=== PATIENT | female | born 1940 ===

== ENCOUNTER 2020-03-02 14:22 | Inpatient (IN) ==
[2020-03-02] MEDS ORDERED: Ondansetron 4 mg VIAL 2 MG/ML 2 ml VIAL IV PRN (19:56)
[2020-03-02] MEDS ORDERED: Al Hydrox/Mg Hydrox/Simet LIQ 30 ML UDC PO PRN (19:56)
[2020-03-02] MEDS ORDERED: Oxymetazoline 0.05% NASAL SPR 15 ML BTL BOTH NARES ONE (19:59)
[2020-03-02] MEDS ORDERED: Dextrose 50% Syringe 50 ml 25 GM/50 ML SYRINGE IV PUSH PRN (20:03)
[2020-03-02 20:46] LABS: Troponin I 0.08 ng/mL (<0.03)
[2020-03-02 21:40] LABS: Hematocrit 38 % (35-47); Hemoglobin 12.6 g/dL (12.0-16.0); Mean Corpuscular HGB Conc 33 g/dL (31-36); Mean Corpuscular Hemoglobin 30 pg (27-31); Mean Corpuscular Volume 91 fL (80-97); Mean Platelet Volume 8.9 fL (7.4-10.4); Platelet Count 215 10^3/uL (150-450); Red Blood Count 4.23 10^6 /uL (3.70-4.87); Red Cell Distribution Width 14 % (10-15); White Blood Count 7.6 10^3/uL (3.5-10.8)
[2020-03-02 21:47] LABS: ABS Basophils 0.1 10^3/ul (0-0.2); ABS Eosinophils 0.2 10^3/ul (0-0.6); ABS Lymphocytes 1.7 10^3/ul (1.0-4.8); ABS Monocytes 1.1 10^3/ul (0-0.8); ABS Neutrophils 4.6 10^3/ul (1.5-7.7); Eosinophil % 2.3 %; Lymphocyte % 22.9 %; Nucleated Red Blood Cells % 0.1
[2020-03-02] MEDS: DULoxetine DR 20 mg CAP PO SCH (21:56)
[2020-03-02] MEDS: Heparin DRIP 25,000 UNITS BAG 25,000 UNITS/500 ML BAG IV SCH (21:58)
[2020-03-02 22:00] LABS: EGFR African American 80.7 (>60); EGFR Non-African American 66.7 (>60)
[2020-03-02] MEDS: Latanoprost 0.005% 2.5 ml BTL BOTH EYES SCH (22:08)
[2020-03-02] MEDS: HYDROcodone/ACETAMIN 5/325 mg TAB PO PRN (22:53)
[2020-03-02] MEDS ORDERED: Albuterol HFA INHALER 8 gm MDI INH PRN (23:07)
[2020-03-02] MEDS: Furosemide 40 mg/4 ml IV VIAL IV SCH (23:14)
[2020-03-02 23:49] LABS: Troponin I 0.08 ng/mL (<0.03)
[2020-03-03] MEDS: Mometasone/Formoter 200/5 MDI INH SCH ×4 (01:01→19:23)
[2020-03-03 03:42] LABS: ABS Lymphocytes 0.6 10^3/ul (1.0-4.8); ABS Monocytes 0.2 10^3/ul (0-0.8); ABS Neutrophils 6.1 10^3/ul (1.5-7.7); Eosinophil % 0.2 %; Hematocrit 38 % (35-47); Hemoglobin 12.7 g/dL (12.0-16.0); Lymphocyte % 8.9 %; Mean Corpuscular HGB Conc 33 g/dL (31-36); Mean Corpuscular Hemoglobin 31 pg (27-31); Mean Corpuscular Volume 92 fL (80-97); Mean Platelet Volume 9.1 fL (7.4-10.4); Platelet Count 211 10^3/uL (150-450); Red Blood Count 4.14 10^6 /uL (3.70-4.87); Red Cell Distribution Width 15 % (10-15); White Blood Count 6.9 10^3/uL (3.5-10.8)
[2020-03-03] MEDS: Heparin 5000 UNITS/ML 1 mL VIAL IV SCH (03:58)
[2020-03-03 04:15] LABS: TSH Ultra Thyroid Stim Horm 1.69 mcIU/mL (0.34-5.60)
[2020-03-03 04:18] LABS: Albumin 3.6 g/dL (3.2-5.2); Albumin/Globulin Ratio 1.3 (1-3); BUN/Creatinine Ratio 30.7 (8-20); EGFR African American 75.4 (>60); EGFR Non-African American 62.3 (>60); Globulin 2.8 g/dL (2-4); Potassium 3.5 mmol/L (3.5-5.0); Total Bilirubin 1.3 mg/dL (0.2-1.0); Total Protein 6.4 g/dL (6.4-8.9)
[2020-03-03] MEDS ORDERED: Potassium Chlor 20 meq TAB.ER PO ONE ×2 (04:31→22:53)
[2020-03-03] MEDS ORDERED: Iodixanol (CONTRAST) 320 MG/ML 100 ML SDV IV ONE ×3 (08:44→12:22)
[2020-03-03] MEDS ORDERED: diPHENhydraMINE IV 50 MG/ML 1 ml VIAL (BENADRYL) IV ONE (10:00)
[2020-03-03] MEDS: HYDROcodone/ACETAMIN 5/325 mg TAB PO PRN ×2 (10:18→20:29)
[2020-03-03] MEDS: DULoxetine DR 20 mg CAP PO SCH (10:18)
[2020-03-03] MEDS: Furosemide 40 mg/4 ml IV VIAL IV SCH (10:19)
[2020-03-03 11:33] LABS: INR 1.38 (0.82-1.09)
[2020-03-03 11:48] LABS: Activated Partial Thrombo Time 190.5 seconds (26.0-38.0)
[2020-03-03] MEDS ORDERED: Iodixanol (CONTRAST) 320 MG/ML 100 ML SDV IV SCH (13:00)
[2020-03-03] MEDS ORDERED: Magnesium Sulfate IV 3 GM in NS 0.9% 100 ml BAG 100 ML IVPB ONE (15:25)
[2020-03-03] MEDS ORDERED: Albuterol HFA INHALER 8 gm MDI INH PRN (15:28)
[2020-03-03] MEDS ORDERED: Fluticasone/Vilanterol MDI(NF) 100/25 MDI INH SCH (16:00)
[2020-03-03 18:38] LABS: BUN/Creatinine Ratio 26.1 (8-20); Calcium 8.2 mg/dL (8.6-10.3); EGFR African American 55.4 (>60); EGFR Non-African American 45.8 (>60); Potassium 3.3 mmol/L (3.5-5.0)
[2020-03-03 19:05] LABS: Magnesium 19.6 mg/dL (1.9-2.7)
[2020-03-03] MEDS: Latanoprost 0.005% 2.5 ml BTL BOTH EYES SCH (20:16)
[2020-03-04 07:56] LABS: EGFR African American 50.3 (>60); EGFR Non-African American 41.6 (>60)
[2020-03-04] MEDS: Heparin 5000 UNITS/ML 1 mL VIAL IV SCH (08:06)
[2020-03-04] MEDS: DULoxetine DR 20 mg CAP PO SCH (08:07)
[2020-03-04] MEDS: Furosemide 40 mg/4 ml IV VIAL IV SCH (08:07)
[2020-03-04 09:00] LABS: Potassium 4.2 mmol/L (3.5-5.0)
[2020-03-04] MEDS: Mometasone/Formoter 200/5 MDI INH SCH ×2 (10:11→19:43)
[2020-03-04] MEDS: Heparin DRIP 25,000 UNITS BAG 25,000 UNITS/500 ML BAG IV SCH (12:27)
[2020-03-04] MEDS ORDERED: NS 0.9% 250 ml 250 ML IV ONE (21:16)
[2020-03-04 22:01] LABS: ABS Basophils 0.1 10^3/ul (0-0.2); ABS Eosinophils 0.1 10^3/ul (0-0.6); ABS Lymphocytes 1.9 10^3/ul (1.0-4.8); ABS Neutrophils 6.1 10^3/ul (1.5-7.7); Eosinophil % 0.8 %; Hematocrit 37 % (35-47); Hemoglobin 11.9 g/dL (12.0-16.0); Lymphocyte % 20.3 %; Mean Corpuscular HGB Conc 33 g/dL (31-36); Mean Corpuscular Hemoglobin 30 pg (27-31); Mean Corpuscular Volume 91 fL (80-97); Mean Platelet Volume 9.2 fL (7.4-10.4); Nucleated Red Blood Cells % 0.1; Platelet Count 243 10^3/uL (150-450); Red Cell Distribution Width 15 % (10-15); White Blood Count 9.2 10^3/uL (3.5-10.8)
[2020-03-05] MEDS: Latanoprost 0.005% 2.5 ml BTL BOTH EYES SCH ×2 (01:42→21:23)
[2020-03-05] MEDS: HYDROcodone/ACETAMIN 5/325 mg TAB PO PRN (01:46)
[2020-03-05 02:29] LABS: Urine Appearance Cloudy; Urine Bilirubin Negative (Negative); Urine Blood 2+ (Negative); Urine Color Amber; Urine Glucose Negative (Negative); Urine Ketones Negative (Negative); Urine Nitrite Negative (Negative); Urine Protein Negative (Negative); Urine Specific Gravity 1.028 (1.010-1.030); Urine Urobilinogen Positive (Negative)
[2020-03-05 02:52] LABS: Urine Bacteria 1+ (Absent); Urine Granular Casts Present (Absent); Urine Red Blood Cell 2+(6-10/hpf) (Absent); Urine Squamous Epithelial Cell Present (Absent); Urine White Blood Cell Trace(0-5/hpf) (Absent)
[2020-03-05 05:02] LABS: ABS Lymphocytes 1.2 10^3/ul (1.0-4.8); ABS Neutrophils 5.4 10^3/ul (1.5-7.7); Eosinophil % 0.5 %; Hematocrit 36 % (35-47); Hemoglobin 11.7 g/dL (12.0-16.0); Lymphocyte % 15.6 %; Mean Corpuscular HGB Conc 32 g/dL (31-36); Mean Corpuscular Hemoglobin 30 pg (27-31); Mean Corpuscular Volume 91 fL (80-97); Mean Platelet Volume 9.5 fL (7.4-10.4); Nucleated Red Blood Cells % 0.1; Platelet Count 213 10^3/uL (150-450); Red Blood Count 3.94 10^6 /uL (3.70-4.87); Red Cell Distribution Width 15 % (10-15); White Blood Count 7.6 10^3/uL (3.5-10.8)
[2020-03-05 05:21] LABS: BUN/Creatinine Ratio 31.3 (8-20); Calcium 8.2 mg/dL (8.6-10.3); EGFR African American 36.2 (>60); Potassium 3.9 mmol/L (3.5-5.0)
[2020-03-05] MEDS: Mometasone/Formoter 200/5 MDI INH SCH ×2 (07:21→19:52)
[2020-03-05] MEDS: DULoxetine DR 20 mg CAP PO SCH (08:25)
[2020-03-05 11:32] LABS: Urine Appearance Cloudy; Urine Bacteria Absent (Absent); Urine Bilirubin Negative (Negative); Urine Blood 2+ (Negative); Urine Color Yellow; Urine Glucose Negative (Negative); Urine Ketones Negative (Negative); Urine Nitrite Negative (Negative); Urine Protein Negative (Negative); Urine Red Blood Cell Trace(0-2/hpf) (Absent); Urine Specific Gravity 1.019 (1.010-1.030); Urine Squamous Epithelial Cell Present (Absent); Urine Urobilinogen Negative (Negative); Urine White Blood Cell Trace(0-5/hpf) (Absent)
[2020-03-05] MEDS ORDERED: Magnesium Hydroxide LIQ 30 ML UDC PO PRN (11:44)
[2020-03-05] MEDS ORDERED: Polyethylene Glycol 3350 17 GM PACKET PO PRN (11:44)
[2020-03-05] MEDS ORDERED: Senna TAB 8.6 mg TAB PO PRN (11:44)
[2020-03-05] MEDS: Heparin 5000 UNITS/ML 1 mL VIAL IV SCH (12:53)
[2020-03-05] MEDS: Magnesium Hydroxide LIQ 30 ML UDC PO SCH (21:22)
[2020-03-06] MEDS: Heparin DRIP 25,000 UNITS BAG 25,000 UNITS/500 ML BAG IV SCH (01:44)
[2020-03-06 06:44] LABS: ABS Eosinophils 0.1 10^3/ul (0-0.6); ABS Lymphocytes 1.2 10^3/ul (1.0-4.8); ABS Monocytes 1.1 10^3/ul (0-0.8); ABS Neutrophils 5.1 10^3/ul (1.5-7.7); Eosinophil % 1.7 %; Hematocrit 35 % (35-47); Hemoglobin 11.7 g/dL (12.0-16.0); Lymphocyte % 15.4 %; Mean Corpuscular HGB Conc 34 g/dL (31-36); Mean Corpuscular Hemoglobin 30 pg (27-31); Mean Corpuscular Volume 91 fL (80-97); Platelet Count 208 10^3/uL (150-450); Red Blood Count 3.84 10^6 /uL (3.70-4.87); Red Cell Distribution Width 15 % (10-15); White Blood Count 7.5 10^3/uL (3.5-10.8)
[2020-03-06 06:54] LABS: BUN/Creatinine Ratio 36.5 (8-20); Calcium 8.5 mg/dL (8.6-10.3); EGFR African American 55.4 (>60); EGFR Non-African American 45.8 (>60); Potassium 3.8 mmol/L (3.5-5.0)
[2020-03-06] MEDS: Mometasone/Formoter 200/5 MDI INH SCH ×2 (08:27→19:34)
[2020-03-06] MEDS: Magnesium Hydroxide LIQ 30 ML UDC PO SCH ×2 (08:39→20:51)
[2020-03-06] MEDS: DULoxetine DR 20 mg CAP PO SCH (08:40)
[2020-03-06] MEDS: Latanoprost 0.005% 2.5 ml BTL BOTH EYES SCH (20:51)
[2020-03-07] MEDS: Mometasone/Formoter 200/5 MDI INH SCH ×2 (07:46→19:56)
[2020-03-07] MEDS: DULoxetine DR 20 mg CAP PO SCH (09:14)
[2020-03-07] MEDS: Magnesium Hydroxide LIQ 30 ML UDC PO SCH ×2 (09:15→20:32)
[2020-03-07 10:19] LABS: ABS Eosinophils 0.1 10^3/ul (0-0.6); ABS Lymphocytes 0.9 10^3/ul (1.0-4.8); ABS Monocytes 0.9 10^3/ul (0-0.8); ABS Neutrophils 4.3 10^3/ul (1.5-7.7); Eosinophil % 1.6 %; Hematocrit 33 % (35-47); Lymphocyte % 14.3 %; Mean Corpuscular HGB Conc 34 g/dL (31-36); Mean Corpuscular Hemoglobin 31 pg (27-31); Mean Corpuscular Volume 91 fL (80-97); Mean Platelet Volume 9.6 fL (7.4-10.4); Platelet Count 185 10^3/uL (150-450); Red Blood Count 3.62 10^6 /uL (3.70-4.87); Red Cell Distribution Width 15 % (10-15); White Blood Count 6.2 10^3/uL (3.5-10.8)
[2020-03-07] MEDS: Latanoprost 0.005% 2.5 ml BTL BOTH EYES SCH (20:28)
[2020-03-08 06:11] LABS: ABS Basophils 0.1 10^3/ul (0-0.2); ABS Eosinophils 0.1 10^3/ul (0-0.6); ABS Lymphocytes 1.5 10^3/ul (1.0-4.8); ABS Monocytes 1.1 10^3/ul (0-0.8); ABS Neutrophils 4.4 10^3/ul (1.5-7.7); Eosinophil % 2.1 %; Hematocrit 35 % (35-47); Hemoglobin 11.2 g/dL (12.0-16.0); Lymphocyte % 20.4 %; Mean Corpuscular HGB Conc 32 g/dL (31-36); Mean Corpuscular Hemoglobin 30 pg (27-31); Mean Corpuscular Volume 91 fL (80-97); Mean Platelet Volume 9.3 fL (7.4-10.4); Nucleated Red Blood Cells % 0.1; Platelet Count 200 10^3/uL (150-450); Red Cell Distribution Width 15 % (10-15); White Blood Count 7.2 10^3/uL (3.5-10.8)
[2020-03-08 06:30] LABS: BUN/Creatinine Ratio 29.3 (8-20); Calcium 8.3 mg/dL (8.6-10.3); EGFR African American 71.6 (>60); EGFR Non-African American 59.2 (>60); Potassium 4.1 mmol/L (3.5-5.0)
[2020-03-08] MEDS: Mometasone/Formoter 200/5 MDI INH SCH ×2 (09:14→19:46)
[2020-03-08] MEDS: DULoxetine DR 20 mg CAP PO SCH (10:03)
[2020-03-08] MEDS: Magnesium Hydroxide LIQ 30 ML UDC PO SCH (10:05)
[2020-03-08] MEDS: Latanoprost 0.005% 2.5 ml BTL BOTH EYES SCH (20:52)
[2020-03-09] MEDS: Heparin DRIP 25,000 UNITS BAG 25,000 UNITS/500 ML BAG IV SCH (03:46)
[2020-03-09] MEDS: Mometasone/Formoter 200/5 MDI INH SCH (08:19)
[2020-03-09] MEDS: DULoxetine DR 20 mg CAP PO SCH (08:31)
[2020-03-09] MEDS: Heparin 5000 UNITS/ML 1 mL VIAL IV SCH (09:57)
[2020-03-09] MEDS: HYDROcodone/ACETAMIN 5/325 mg TAB PO PRN (12:55)
[2020-03-09 16:13] VITALS: BP 100/60
[2020-03-09] MEDS ORDERED: Heparin DRIP 25,000 UNITS BAG 25,000 UNITS/500 ML BAG IV SCH (16:30)
== END 2020-03-09 18:30 | disposition short-term general hospital (02) | DRG 280 ==
LOC: MEDTELE 19:19
PROVIDERS: ADMIT Hospitalist; ATTEND Internal Medicine